=== PATIENT | male | born 1960 | race African-American/Black ===

== ENCOUNTER 2016-08-19 07:46 | Inpatient (IN) | payer BC ==
[2016-08-11 17:03] LABS: BUN (BLOOD UREA NITROGEN) 13 MG/DL (6-23); CALCIUM, SERUM 8.7 MG/DL (8.5-10.4); CHLORIDE, SERUM 107 MMOL/L (96-112); CO2 (CARBON DIOXIDE) 28 MMOL/L (24-34); CREATININE 1.12 MG/DL (0.70-1.30); GFR AFRICAN AMERICAN 84 ML/MIN (>=60); GFR NON AFRICAN AMERICAN 73 ML/MIN (>=60); POTASSIUM, SERUM 3.3 MMOL/L (3.5-5.3); SODIUM, SERUM 144 MMOL/L (135-148)
[2016-08-11 17:07] LABS: GLUCOSE, SERUM 152 MG/DL (60-99)
--- NOTE | ~2016-08-19 | OP ---
Record Of Operation [facility] [address] [place]. [address] NAME: GANESH NELSON : 58 STATUS : DIS IN PAT#: [id number] AGE: 56 ADM/REG DATE : 08/19/16 MR#: [id number] REPORT SERV DATE: 08/21/16 DICTATED BY: DONELL POLLARD II DATE: 08/21/16 REPORT STATUS : Draft TRANSCRIBED BY: MODL DATE: 08/21/16 DATE OF PROCEDURE: 08/19/2016 PREOPERATIVE DIAGNOSES: 1. History of L4-5 laminectomy. 2. L4-5 spondylolisthesis with facet instability. 3. 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 4. Left lower extremity radiculopathy. POSTOPERATIVE DIAGNOSES: 1. History of L4-5 laminectomy. 2. L4-5 spondylolisthesis with facet instability. 3. 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 4. Left lower extremity radiculopathy. PROCEDURES: 1. Revision of facetectomy and laminectomy at L4-L5 for decompression of the L4 and L5 nerve roots. 2. Interbody arthrodesis at L4-L5. 3. Application of prosthetic device at L4-L5. 4. Posterolateral arthrodesis at L4-5. 5. Posterior nonsegmental instrumentation at L4-L5. 6. Use of local autograft, allograft substitute, and bone morphogenic protein. 7. Use of the microscope and stereotactic spinal imaging. SURGEON: Donell Pollard M.D. FLUIDS: 1600 mL of LR. ESTIMATED BLOOD LOSS: 100 mL. DRAINS: One drain. COMPLICATIONS: None. ANTIBIOTIC: Preoperatively. IMPLANTS: Alphatec. PREOPERATIVE HISTORY: This is a very friendly 56-year-old gentleman who reports some back pain, but predominantly pain radiating from the buttock into the thigh and into the leg on the left side. We discussed the pros and cons of surgery versus continuing nonoperative care. He was overall miserable with the left lower extremity pain. He was found to have severe facet degeneration and what appeared to be facet instability on the left. He had severe gapping on the right. The left facet was severely degenerative, but also appeared to have a near absence of the inferior facet. There was also appeared to be a facet fracture Record Of Operation [facility] [address] [place]. [address] NAME: GANESH NELSON : 58 STATUS : DIS IN PAT#: [id number] AGE: 56 ADM/REG DATE : 08/19/16 MR#: [id number] REPORT SERV DATE: 08/21/16 DICTATED BY: DONELL POLLARD II DATE: 08/21/16 REPORT STATUS : Draft TRANSCRIBED BY: MODL DATE: 08/21/16 incidentally when the intraoperative CT scan was completed. We discussed the risks and benefits of surgery as well as the risks. We discussed the rates of success versus failure. Risks discussed include, but not limited to infection, abscess, CSF leak, footdrop, nerve root injury, adjacent segment degeneration, and a small chance of stroke and . His disks at these levels looked fairly decent. However, he does have some mild facet arthrosis at multiple levels. DESCRIPTION OF PROCEDURE: After informed consent was obtained, the patient was brought to the operating room at his request and general anesthesia achieved. He was placed in the prone position and the back was prepped and draped in a sterile fashion. The stereotactic spinal pin was placed into the right iliac crest followed by completion of the intraoperative CT scan. The minimally invasive incision was now performed on the left. Mr. Nelson is not obese, but has a very thick muscular layer. We placed the quadrant retractor into the L4-5 region and the stereotactic guidance used throughout the case. At this point, the microscope was brought into place and under microscopic visualization, the facetectomy was performed. The severe facet degeneration was noted. There was a facet fracture noted and the pars was essentially fractured. The [id number] decompression was now achieved from L4-L5. The L4 and L5 nerve roots were now found to be well decompressed following removal of the facets as well as the ligamentum flavum. At this point, the interbody arthrodesis was initiated. The L5 nerve root was carefully retracted and the diskectomy now performed with the knife followed by use of the pituitary rongeurs, Kerrison rongeurs, and the yvon. The punctate bleeding bone was identified on both endplates. The area was now irrigated. Next, the local autograft, allograft substitute, and bone morphogenic protein were placed into the anterior column. The prosthetic device was then well placed at L4-5. Next, the pedicle screws were applied bilaterally. Stereotactic guidance was used. A repeat CT scan confirmed acceptable placement of the nonsegmental instrumentation. The rods were then final tightened. Next, the decortication was performed of the left transverse process of L4 and L5. Local autograft, allograft substitute, and bone morphogenic protein were placed along the decorticated surfaces. A deep drain was placed on the left followed by standard closure and the patient was then extubated and transferred to PACU in stable condition. LEONORA/KARTHIKEYAN Donell Pollard II, M.D. / [id number] CC: Record Of Operation [address] [address] NAME: GANESH NELSON : 58 STATUS : DIS IN PAT#: [id number] AGE: 56 ADM/REG DATE : 08/19/16 MR#: [id number] REPORT SERV DATE: 08/21/16 DICTATED BY: DONELL POLLARD II DATE: 08/21/16 REPORT STATUS : Draft TRANSCRIBED BY: MODL DATE: 08/21/16 Aniya Mc II, M.D.
[~2016-08-19 07:46] MED LIST: ATEN100 PO; ATENOLOL PO; COZ50 PO; HYZAAR 100/25 T1 TAB PO; LYRICA75 PO; PRAVACHOL40 MG PO; PRILO PO; PRILOSEC40 MG PO; PRIN20 PO; XARELTO15 MG PO; ZANTAC300 MG PO
[2016-08-21] MEDS ORDERED: V5 PO (10:23)
[2016-08-21] MEDS ORDERED: OXYCOD PO (10:23)
[2016-08-21] MEDS ORDERED: MSCONTIN PO (10:23)
== END 2016-08-21 11:58 | disposition home or self-care (01) | DRG 460 ==
LOC: SDC/OF 07:46 → PACU 13:55 → 3SO 15:55
PROVIDERS: Orthopaedic Surgery
PROC: 0SG00AJ Fusion of Lumbar Vertebral Joint with Interbody Fusion Device, Posterior Approach, Anterior Column, Open Approach (ICD-10-PCS; principal; 2016-08-19 09:45)
PROC: 0SG0071 Fusion of Lumbar Vertebral Joint with Autologous Tissue Substitute, Posterior Approach, Posterior Column, Open Approach (ICD-10-PCS; 2016-08-19 09:45)
DX: M51.16 Intervertebral disc disorders with radiculopathy, lumbar region (principal); I10 Essential (primary) hypertension; F17.210 Nicotine dependence, cigarettes, uncomplicated
CPT/HCPCS: 80048; 82962; 85014; 85018; 87641; 88304; 88311; 93005; 97116-GP; 97161-GP; A9270-GY; C1713; C1768; C1769; J0690; J1170; J2250; J2270; J2405; J2710; J3010; J3370